=== PATIENT | male | born 1975 | race African-American/Black ===

== ENCOUNTER 2017-07-04 20:20 | Emergency (ER) | payer SELFPAY ==
[2017-07-04 20:26] VITALS: BP 188/86; PULSE 94; RESP 16; TEMP 98.3; O2SAT 99
[2017-07-04] MEDS ORDERED: ACETAMINOPHEN/CODEINE 300 MG/30 MG TAB PO ONE (20:45)
[2017-07-04] MEDS ORDERED: TETANUS/DIPHTHERIA TOXOID ADULT 0.5 ML VIAL IM ONE (20:45)
[2017-07-04] MEDS ORDERED: ACETAMINOPHEN 325 MG TAB PO ONE (20:45)
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
--- NOTE | 2017-07-04 22:19 | RADRPT ---
EXAM DATE/TIME: 07/04/2017 21:34 [facility] COMPARISON: No previous studies available for comparison. INDICATIONS : Left leg swelling. MEDICAL HISTORY : Alcohol use. Substance use. Tobacco use. SURGICAL HISTORY : Abdominal surgery. ENCOUNTER: Initial ACUITY: 1 day PAIN SCORE: 4/10 LOCATION: Left leg. TECHNIQUE: Venous ultrasound of the leg was performed from the inguinal ligament to the proximal calf. Real-dayne e, color Doppler and spectral tracing, compression and augmentation techniques were used. FINDINGS: There is normal compressibility of the deep venous system from the inguinal region to the proximal ca lf. No echogenic clot is seen in the lumen of the common femoral, femoral, popliteal, and posterior tibial veins. There is a normal response of the venous system to proximal and distal augmentation an d respiration. CONCLUSION: Normal examination. Blake Moulton MD on July 04, 2017 at 22:16 Board Certified Radiologist. This report was verified electronically.
--- NOTE | 2017-07-04 22:21 | RADRPT ---
EXAM DATE/TIME: 07/04/2017 21:41 [facility] COMPARISON: No previous studies available for comparison. INDICATIONS : Fluid collection. MEDICAL HISTORY : Alcohol use. Substance use. Tobacco use. SURGICAL HISTORY : Abdominal surgery. ENCOUNTER: Initial ACUITY: Acute PAIN SCORE: Unknown LOCATION: Left leg. AREA EVALUATED: Left anterior louie FINDINGS: There is focal soft tissue swelling in the left anterior leg with some complex fluid. Differential di agnosis includes hematoma or infection. This measures up to 3.4 x 1.8 x 0.8 cm. CONCLUSION: 1. Complex fluid left anterior leg as measured above. Differential diagnosis includes hematoma or inf ection. Blake Moulton MD on July 04, 2017 at 22:18 Board Certified Radiologist. This report was verified electronically.
[2017-07-04] MEDS ORDERED: SULFAMETHOXAZOLE-TRIMETHOPRIM DS 800-160 MG TAB PO ONE (22:30)
[2017-07-04] MEDS ORDERED: BACT800T5 PO (22:35)
[2017-07-04] MEDS ORDERED: MUPI2OIN TOPICAL (22:35)
[2017-07-04] MEDS ORDERED: TYLETAB34 PO (22:35)
== END 2017-07-04 22:54 | disposition home or self-care (01) ==
LOC: NEPD 20:20
DX: S80.12XA Contusion of left lower leg, initial encounter (principal); R60.0 Localized edema; F17.200 Nicotine dependence, unspecified, uncomplicated; Z23 Encounter for immunization; X58.XXXA Exposure to other specified factors, initial encounter; Y93.55 Activity, bike riding
CPT/HCPCS: 76882; 90471; 90714; 93971